=== PATIENT | male | born 1975 ===

== ENCOUNTER 2016-12-12 15:33 | Emergency (ER) | payer OTHER ==
[2016-12-12 15:56] VITALS: BP 119/68; PULSE 68; RESP 16; TEMP 98.6; O2SAT 100
--- NOTE | 2016-12-12 16:19 | ED PDOC ---
HPI: CCC, URI, Sore Throat Time Seen by Provider: 12/12/16 15:45 Chief Complaint (Nursing): ENT Problem Chief Complaint (Provider): Sinus Congestion History Per: Patient History/Exam Limitations: no limitations Have you had recent travel within the past 21 days to any of the following countries: [place], [place], [place] or [place]?: No Onset/Duration Of Symptoms: Persistent Current Symptoms Are (Timing): Still Present Location Of Pain: Sinus/es Additional Complaint(s): The patient is a 41yo male, presents to the ED for evaluation of sinus congestion present for the past month. Patient reports he has been using nasal spray and Mucinex 2 days ago with no relief. He reports associated rhinorrhea; denies any fever or chills. Offers no additional medical complaints. Past Medical History Reviewed: Historical Data, Nursing Documentation, Vital Signs Vital Signs: Last Vital Signs Temp 98.6 F 12/12/16 15:54 Pulse 68 12/12/16 15:54 Resp 16 12/12/16 15:54 BP 119/68 12/12/16 15:54 Pulse Ox 100 12/12/16 15:54 - Medical History PMH: Anxiety, Depression - Surgical History Surgical History: No Surg Hx - Family History Family History: States: Unknown Family Hx - Immunization History Hx Tetanus Toxoid Vaccination: Yes Hx Influenza Vaccination: No Hx Pneumococcal Vaccination: No - Home Medications Home Medications: Ambulatory Orders Medication Instructions Recorded Acetaminophen with Codeine 2 tab PO Q4H PRN #22 tab 05/15/15 [Tylenol with Codeine No. 3 300 mg-30 mg] Amoxicillin/Clavulanate [Augmentin 1 tab PO BID #20 tab 12/12/16 875 MG-125 MG] - Allergies Allergies/Adverse Reactions: Allergies Allergy/AdvReac Type Severity Reaction Status Date / Time tetanus and diphtheria Allergy SHORTNESS Verified 05/15/15 15:43 toxoids OF BREATH [tetanus & diphtheria toxoids] Review of Systems ROS Statement: Except As Marked, All Systems Reviewed And Found Negative Constitutional: Negative for: Fever, Chills ENT: Positive for: Nose Congestion Physical Exam - Reviewed Nursing Documentation Reviewed: Yes Vital Signs Reviewed: Yes - Physical Exam Appears: Positive for: Well Head Exam: Positive for: ATRAUMATIC, NORMAL INSPECTION, NORMOCEPHALIC Skin: Positive for: Normal Color, Warm Eye Exam: Positive for: Normal appearance ENT: Positive for: Sinus Pain/Drainage Neck: Positive for: Normal, Supple Cardiovascular/Chest: Positive for: Regular Rate, Rhythm Respiratory: Positive for: Normal Breath Sounds. Negative for: Respiratory Distress Neurologic/Psych: Positive for: Alert, Oriented - ECG O2 Sat by Pulse Oximetry: 100 (RA) Pulse Ox Interpretation: Normal Medical Decision Making Medical Decision Making: Time: 1605 Impression: Sinusitis Plan: -- Patient given rx augmentin and informed to follow up with PCP. Scribe Attestation: Documented by Gretchen Pereira acting as a scribe for FIDENCIO Sanders Provider Attestation: All medical record entries made by the Scribe were at my direction and personally dictated by me. I have reviewed the chart and agree that the record accurately reflects my personal performance of the history, physical exam, medical decision making, and the department course for this patient. I have also personally directed, reviewed, and agree with the discharge instructions and disposition. Disposition - Clinical Impression Clinical Impression: Sinusitis - Disposition Disposition: Routine/Home Disposition Time: 16:20 Condition: STABLE Prescriptions: Amoxicillin/Clavulanate [Augmentin 875 MG-125 MG] 1 tab PO BID #20 tab Instructions: Sinusitis (ED) Print Language: BELARUSIAN
== END 2016-12-12 16:21 | disposition home or self-care (01) ==
LOC: H.ER 15:33
DX: J32.9 Chronic sinusitis, unspecified (principal); Z86.59 Personal history of other mental and behavioral disorders